=== PATIENT | male | born 1960 | race Caucasian/White ===

== ENCOUNTER 2025-06-05 09:34 | Emergency (ER) | payer OTHER ==
[~2025-06-05] VITALS: Ht 165.1 cm; Wt 69.9 kg
[2025-06-05] MEDS ORDERED: LORAZEPAM 1 MG TABLET ONE (10:26)
[2025-06-05] MEDS: LORAZEPAM 1 MG TABLET PO ONE (10:27)
[2025-06-05 11:46] VITALS: BP 103/77; TEMP 98.5; O2SAT 98
== END 2025-06-05 11:47 | disposition home or self-care (01) ==
LOC: ER 10:00
DX: F41.9 Anxiety disorder, unspecified (principal); E11.9 Type 2 diabetes mellitus without complications; E78.00 Pure hypercholesterolemia, unspecified; I11.9 Hypertensive heart disease without heart failure